=== PATIENT | female | born 1990 | race Caucasian/White ===

== ENCOUNTER 2018-04-01 02:33 | Emergency (ER) | payer MEDICAID ==
[2018-04-01 02:40] VITALS: BP 101/70
[2018-04-01] MEDS ORDERED: ONDANSETRON 2MG/ML, 2ML ONE (03:22)
[2018-04-01] MEDS ORDERED: FAMOTIDINE 20 MG/2 ML ONE (03:23)
[2018-04-01] MEDS ORDERED: HYDROcodone/APAP 5/325 TABLET ONE (03:23)
[2018-04-01] MEDS ORDERED: ONDANSETRON 2MG/ML, 2ML IVPush ONE (03:30)
[2018-04-01] MEDS ORDERED: HYDROcodone/APAP 5/325 TABLET PO ONE (03:30)
[2018-04-01] MEDS ORDERED: FAMOTIDINE 20 MG/2 ML IVP ONE (03:30)
[2018-04-01 03:39] LABS: MEAN CORPUSCULAR HEMOGLOBIN 30.3 pg (27.0-34.8); MEAN CORPUSCULAR HGB CONC 33.9 g/dL (32.4-35.8); MEAN CORPUSCULAR VOLUME 89.2 fL (80-100); MEAN PLATELET VOLUME 9.7 fL (7.4-10.4); PLATELET COUNT 216 x10^3/uL (130-400); RED BLOOD COUNT 4.93 x10^6/uL (3.82-5.3); RED CELL DISTRIBUTION WIDTH 13.1 % (9.6-15.2)
[2018-04-01 03:55] LABS: ALANINE AMINOTRANSFERASE 18 U/L (12-78); ALBUMIN 3.9 g/dL (3.4-5.0); ANION GAP 8 mmol/L (5-15); CALCIUM 8.7 mg/dL (8.5-10.1); CHLORIDE 110 mmol/L (98-107); CREATININE 0.98 mg/dL (0.55-1.02)
[2018-04-01 03:57] LABS: ALKALINE PHOSPHATASE 48 U/L (45-117); BILIRUBIN,TOTAL 0.7 mg/dL (0.2-1.0); TOTAL PROTEIN 7.7 g/dL (6.4-8.2)
[2018-04-01] MEDS ORDERED: ACETAMINOPHEN 500 MG TABLET ONE (04:14)
[2018-04-01 04:19] LABS: HCG UR SG 1.028 (1.003-1.030)
[2018-04-01 04:21] LABS: MICROSCOPIC INDICATED
[2018-04-01 04:22] LABS: CULTURE INDICATED? YES
[2018-04-01 04:23] LABS: MD YES
[2018-04-01 04:25] LABS: <PLATELET ESTIMATE> ADEQUATE; <PLT MORPHOLOGY> NORMAL PLT MORPH; <RBC MORPHOLOGY> NORMAL; BAND#(MANUAL) 0.58 x10^3/uL; BANDS%(MANUAL) 4 % (0-7); EOS#(MANUAL) 0.29 x10^3/uL (0.0-0.4); EOS% (MANUAL) 2 % (1-7); LYMPH#(MANUAL) 0.58 x10^3/uL (1-3.4); LYMPHS% (MANUAL) 4 % (22-44); MONOS#(MANUAL) 0.14 x10^3/uL (0.3-2.7); MONOS% (MANUAL) 1 % (2-9); SEG#(MANUAL) 12.82 x10^3/uL (1.8-6.8); SEGS% (MANUAL) 89 % (42-75)
[2018-04-01] MEDS ORDERED: ACETAMINOPHEN 500 MG TABLET PO ONE (04:30)
[2018-04-01] MEDS ORDERED: CIPROFLOXACIN 500 MG TABLET ONE (05:37)
[2018-04-01] MEDS ORDERED: CIPROFLOXACIN 500 MG TABLET PO ONE (06:00)
[2018-04-01 06:33] LABS: CLOSTRIDIUM DIFFICILE ANTIGEN NEGATIVE; CLOSTRIDIUM DIFFICILE TOXIN NEGATIVE (Negative)
[2018-04-01 09:36] LABS: CRYPTOSPORIDIUM ANTIGEN Negative (Negative)
== END 2018-04-01 06:03 | disposition home or self-care (01) ==
LOC: ED 06:00
DX: K52.9 Noninfective gastroenteritis and colitis, unspecified (principal)
CPT/HCPCS: 36415; 74021; 80053; 81001; 81025; 83605; 83690; 85025; 87046; 87086; 87324; 87328; 87329; 87427; 89055; 96374; 96375; 99284; J2405; J3490